=== PATIENT | female | born 1995 | race Caucasian/White ===

== ENCOUNTER → 2019-06-17 | Outpatient (CLI) | payer OTHER | END | disposition home or self-care (01) | LOC: LAB EV 12:44 → LAB SHORT 12:44 | DX: J02.9 Acute pharyngitis, unspecified (principal) | CPT/HCPCS: 87081 ==

== ENCOUNTER 2021-05-23 21:06 | Emergency (ER) | payer OTHER ==
[~2021-05-23] VITALS: Ht 154.9 cm; Wt 99.8 kg
[2021-05-23] MEDS ORDERED: Simvastatin10 MG PO (21:50)
[2021-05-23] MEDS ORDERED: Ventolin/Prove6.7 GM INH (21:50)
[2021-05-23] MEDS ORDERED: PSEU120ER PO (22:20)
[2021-05-23] MEDS ORDERED: BENZ100A PO (22:20)
== END 2021-05-23 22:29 | disposition home or self-care (01) ==
LOC: ER 21:06
DX: J20.8 Acute bronchitis due to other specified organisms (principal); Z20.822 Contact with and (suspected) exposure to COVID-19; Z88.8 Allergy status to other drugs, medicaments and biological substances
CPT/HCPCS: 71045; 99284-25

== ENCOUNTER 2021-05-29 10:00 | Day surgery (SDC) | payer OTHER ==
[~2021-05-29] VITALS: Ht 154.9 cm; Wt 98.8 kg
[~2021-05-29 10:00] MED LIST: BENZ100A PO; PSEU120ER PO; Simvastatin10 MG PO; Ventolin/Prove6.7 GM INH
[2021-05-29] MEDS ORDERED: CELE100 (11:14)
== END 2021-05-29 13:40 | disposition home or self-care (01) ==
LOC: ORSCSDS 10:00
PROVIDERS: Orthopaedic Surgery
PROC: 01N50ZZ Release Median Nerve, Open Approach (ICD-10-PCS; principal; 2021-05-29 11:45)
DX: G56.01 Carpal tunnel syndrome, right upper limb (principal); J45.909 Unspecified asthma, uncomplicated; F17.210 Nicotine dependence, cigarettes, uncomplicated; E66.01 Morbid (severe) obesity due to excess calories; Z68.41 Body mass index [BMI] 40.0-44.9, adult; Z79.899 Other long term (current) drug therapy
CPT/HCPCS: A9270; J0690; J2250; J2704; J3010; J7120

== ENCOUNTER → 2023-12-05 | Outpatient (CLI) | payer BC ==
[~2023-12-05] MED LIST changes: +CELE100
[2023-12-11 04:41] LABS: TESTOSTERONE BY MASS SPEC 81 ng/dL (9-55)
[2023-12-11 04:47] LABS: TESTOSTERONE, FREE MASS SPEC 9.2 pg/mL (0.8-7.4)
== END ==
LOC: LAB 11:38 → LAB SHORT 11:38
PROVIDERS: Registered Nurse Community Health
DX: E28.2 Polycystic ovarian syndrome (principal)
CPT/HCPCS: 84402; 84403

== ENCOUNTER → 2024-08-15 | Outpatient (CLI) | payer BC | END | disposition home or self-care (01) | LOC: LAB SHORT 09:31 | DX: E28.2 Polycystic ovarian syndrome (principal) | CPT/HCPCS: 36415; 84144 ==